=== PATIENT | female | born 1955 | race African-American/Black ===

== ENCOUNTER 2020-12-10 18:31 | Inpatient (IN) | payer OTHER, MEDICARE ==
[~2020-12-10] VITALS: Ht 157.5 cm; Wt 75.7 kg
[2020-12-10] MEDS ORDERED: ONDANSETRON HCL 4MG/2ML INJ IV NR (19:25)
[2020-12-10] MEDS ORDERED: SODIUM CHLORIDE 0.9% 1,000 ML IV ONE (19:30)
[2020-12-10] MEDS ORDERED: ASPIRIN 81MG TABLET PO ONE (20:15)
[2020-12-10 20:23] LABS: CLARITY URINE CLEAR (CLEAR); COLOR URINE YELLOW (YELLOW); KETONES URINE NEGATIVE (NEGATIVE); LEUKOCYTE ESTERASE URINE NEGATIVE (NEGATIVE); NITRITE URINE NEGATIVE (NEGATIVE); OCCULT BLOOD URINE NEGATIVE (NEGATIVE); PROTEIN URINE NEGATIVE (NEGATIVE); SPECIFIC GRAVITY URINE 1.025 (1.005-1.030); UROBILINOGEN URINE 0.2 E.U./dL (0.2-1.0)
[2020-12-10 20:37] LABS: *AMPHETAMINES SCREEN URINE NEGATIVE (NEGATIVE); *BARBITURATES SCREEN URINE NEGATIVE (NEGATIVE); *BENZODIAZEPINES SCREEN URINE NEGATIVE (NEGATIVE); *COCAINE SCREEN URINE NEGATIVE (NEGATIVE); METHADONE URINE SCREEN NEGATIVE (NEGATIVE); OPIATES URINE SCREEN NEGATIVE (NEGATIVE)
[2020-12-10 20:38] LABS: CANNABINOID URINE SCREEN NEGATIVE (NEGATIVE); PHENCYCLIDINE URINE SCREEN NEGATIVE (NEGATIVE)
[2020-12-10 20:40] LABS: BASOPHILS % 0.1 % (0.0-2.0); EOSINOPHILS % 0.1 % (0.0-5.0); HEMATOCRIT. 46.3 % (36.0-48.0); HEMOGLOBIN. 14.5 g/dL (12.0-16.0); LYMPHOCYTES % 10.2 % (20.0-50.0); MEAN CORPUSCULAR HEMOGLOBIN 27.8 pg (28.0-32.0); MEAN CORPUSCULAR VOLUME 88.3 fL (81.0-99.0); MEAN PLATELET VOLUME 8.8 fl (7.4-10.4); NEUTROPHILS % 85.6 % (40.0-76.0); PLATELET 309 x1000/uL (130-400); RED BLOOD CELL COUNT 5.24 mill/uL (4.2-5.4); RED CELL DISTRIBUTION WIDTH 14.9 % (11.6-14.6)
[2020-12-10 20:46] LABS: CHLORIDE 112 mEq/L (98-107)
[2020-12-10 20:50] LABS: ETHANOL BLOOD < 10 mg/dL
[2020-12-10 20:51] LABS: PROTHROMBIN TIME 10.5 sec (9.6-11.0)
[2020-12-10 20:53] LABS: LDL CHOLESTEROL 143 mg/dL (5-100)
[2020-12-10] MEDS ORDERED: METOCLOPRAMIDE HCL 10MG/2ML VIAL IV NR (21:00)
[2020-12-10] MEDS ORDERED: IOHEXOL-350 100 ML BOTTLE ONE (23:05)
[2020-12-11] VITALS (7 sets, daily range): BP systolic 138–165; BP diastolic 81–96
[2020-12-11] MEDS ORDERED: MELO-106 PO (02:00)
[2020-12-11] MEDS ORDERED: ALBU6.7H9 INH (02:05)
[2020-12-11] MEDS ORDERED: OXYB5TAB17 PO (02:05)
[2020-12-11] MEDS ORDERED: HYDR-4009 PO (02:05)
[2020-12-11] MEDS ORDERED: HYDROCODONE/ACETAMINOPHEN 10/325MG TABLET PO PRN (02:22)
[2020-12-11] MEDS ORDERED: ONDANSETRON HCL 4MG/2ML INJ IV PRN (08:00)
[2020-12-11] MEDS ORDERED: OXYBUTYNIN CHLORIDE 5MG TABLET PO SCH (09:00)
[2020-12-11] MEDS ORDERED: ASPIRIN 81MG TABLET PO SCH (09:00)
[2020-12-11] MEDS ORDERED: AMLODIPINE 10MG TABLET PO SCH (09:00)
[2020-12-11] MEDS ORDERED: MELOXICAM 7.5MG TABLET PO SCH (09:00)
[2020-12-11] MEDS ORDERED: IPRATROPIUM/ALBUTEROL 0.5-3(2.5)MG/3ML NEB HHN PRN (10:15)
[2020-12-11] MEDS ORDERED: MAGNESIUM/ALUMINUM HYDROXIDE/SIMETHICONE 30ML UDC PO PRN (10:15)
[2020-12-11] MEDS ORDERED: CLONIDINE 0.1MG TABLET PO PRN (10:15)
[2020-12-11] MEDS ORDERED: DOCUSATE SODIUM 100MG CAPSULE PO PRN (10:15)
[2020-12-11] MEDS ORDERED: ACETAMINOPHEN 325MG TABLET PO PRN (10:15)
[2020-12-11] MEDS ORDERED: OMEPRAZOLE 20MG CAPSULE EXTENDED RELEASE PO SCH (10:30)
[2020-12-11 10:51] LABS: BG BASE EXCESS -14.6 mmol/L (-2.0-2.0); BG CARBOXYHEMOGLOBIN 0.3 % (0.5-1.5); BG DEOXYHEMOGLOBIN 2.8 % (0.0-5.0); BG FRACTION INSPIRED OXYGEN 21; BG HCO3 ACT 9.8 mmol/L (22.0-26.0); BG METHEMOGLOBIN 0.3 % (0.0-1.5); BG OXYGEN SATURATION 97.2 % (92.0-98.5); BG OXYHEMOGLOBIN 96.6 % (94.0-97.0); BG PCO2 21.7 mmHg (35.0-45.0); BG PH 7.273 (7.350-7.450); BG PO2 94.2 mmHg (75.0-100.0); BG SAMPLE SITE RIGHT BRACHIAL; BG TOTAL HEMOGLOBIN 16.1 g/dL (12.0-18.0); BG VENT MODE ROOM AIR
[2020-12-11] MEDS ORDERED: ENOXAPARIN 40MG/0.4ML SYR SUBCUT SCH (11:00)
[2020-12-11 11:13] LABS: HEMATOCRIT. 47.2 % (36.0-48.0); HEMOGLOBIN. 15.3 g/dL (12.0-16.0); MEAN CORPUSCULAR HEMOGLOBIN 28.4 pg (28.0-32.0); MEAN CORPUSCULAR VOLUME 87.4 fL (81.0-99.0); MEAN PLATELET VOLUME 8.9 fl (7.4-10.4); PLATELET 378 x1000/uL (130-400); RED CELL DISTRIBUTION WIDTH 15.3 % (11.6-14.6)
[2020-12-11] MEDS ORDERED: METOCLOPRAMIDE HCL 10MG/2ML VIAL IV PRN (12:45)
[2020-12-11] MEDS ORDERED: HYDRALAZINE 20MG/ML VIAL IV PRN (12:45)
[2020-12-11 17:24] LABS: PLATELET ESTIMATE NORMAL
[2020-12-11] MEDS ORDERED: ATORVASTATIN CALCIUM 40MG TABLET PO SCH (21:00)
== END 2020-12-11 22:09 | disposition short-term general hospital (02) | DRG 93 ==
LOC: EDBD 18:31 → ER 18:31 → 8WST 22:07 → EDBEDREQ 22:29 → EDBEDREQSVC 22:29 → EDBEDREQTM 22:29 → ENRESERV 22:45
PROVIDERS: ADMIT Internal Medicine; ATTEND Internal Medicine
DX: R47.81 Slurred speech (principal); D72.829 Elevated white blood cell count, unspecified; G43.909 Migraine, unspecified, not intractable, without status migrainosus; J45.909 Unspecified asthma, uncomplicated; Z96.649 Presence of unspecified artificial hip joint; R11.2 Nausea with vomiting, unspecified; Z20.822 Contact with and (suspected) exposure to COVID-19
CPT/HCPCS: 36415; 36600; 70496; 70498; 71045; 80048; 80053; 80061; 80305; 80320; 81003; 82375; 82805; 82962; 83721; 84145; 84484; 85025; 87426; 93005; 93306; 99291; J1650; J2405; J2765; Q9967; G0480